=== PATIENT | female | born 2000 | race Caucasian/White ===

== ENCOUNTER 2023-10-22 00:09 | Emergency (ER) | payer SELFPAY ==
--- NOTE | ~2023-10-22 | XR_ITS ---
Portable chest x-ray Comparison: None Clinical History: Overdose Findings: Lungs are clear, without focal consolidation or pleural effusion. Cardiomediastinal silho uette is unremarkable. Bones and soft tissues are unremarkable. Impression: Normal chest. Reviewed, dictated and finalized at location M. Impression: Normal chest.
--- NOTE | ~2023-10-22 | CT_ITS ---
Non-contrast Head CT History: Seizure Technique: Axial non-contrast imaging of the brain was performed. Dose reduction technique was used on this scan by utilizing automated exposure control and iterative reconstruction technique. The dose -length product (DLP) was 605.33 mGy-cm. Findings: There is no evidence of intracranial hemorrhage, mass lesion, or acute infarct. Brain par enchyma appears normal. The ventricles and subarachnoid spaces are normal in size. The calvarium ap pears normal. The visualized paranasal sinuses and mastoid air cells are clear. Impression: No significant abnormality seen. Reviewed, dictated and finalized at location . Impression: No significant abnormality seen.
[2023-10-22 00:11] VITALS: BP 120/94; PULSE 98; RESP 18; TEMP 36.9; O2SAT 100
--- NOTE | 2023-10-22 00:21 | ECG_ITS ---
Test Date: 2023-10-22 00:46:05 Measurements Intervals Jeffrey Rate: 75 P: 53 [place]: 144 QRS: 67 QRSD: 92 T: 68 QT: 393 QTc: 442 Interpretive Statements SINUS RHYTHM INCOMPLETE RIGHT BUNDLE BRANCH BLOCK BORDERLINE ECG No previous ECG available for comparison Electronically Signed On 10-22-2023 06:10:15 CDT by Eugene Espinosa D.O.
[2023-10-22] MEDS: SODIUM CHLORIDE 0.9% IV 1,000 ML 999 ML IV CONT (00:27)
[2023-10-22 00:39] LABS: Acetaminophen < 10 ug/mL (10-30); Ethanol < 10 mg/dL (<10); Salicylate < 1.0 mg/dL (2-20)
[2023-10-22 00:42] LABS: INR 1.1; Partial Thromboplastin Time 22.2 Seconds (22.3-36.8)
[2023-10-22 00:44] LABS: Alanine Aminotransferase 15 U/L (6-35); Albumin Level 4.3 g/dL (3.5-5.1); Alkaline Phosphatase 52 U/L (38-126); Anion Gap 9 mmol/L (4-12); Aspartate Amino Transferase 22 U/L (14-36); Bilirubin,Total 0.6 mg/dL (0.2-1.3); Blood Urea Nitrogen 16 mg/dL (7-17); Calcium 9.1 mg/dL (8.4-10.2); Carbon Dioxide 26 mmol/L (22-30); Chloride 106 mmol/L (98-107); Estimated CRCL calculation 65 ml/min; Estimated Glomerular Filt Rate > 60; Glucose 81 mg/dL (65-110); Potassium 3.8 mmol/L (3.4-5.0); Sodium 141 mmol/L (137-145)
[2023-10-22 00:57] LABS: Basophils Percent Auto 0.6 % (0.2-1.2); Eosinophils Absolute Auto 0.2 K/mm3 (0-0.3); Eosinophils Percent Auto 2.2 % (0-4.4); Hematocrit 36.7 % (37.0-47.0); Hemoglobin 12.5 g/dL (12.0-15.0); Immature Granulocyte Absolute 0.01 K/mm3 (0.00-0.031); Immature Granulocyte Percent A 0.1 % (0-0.5); Lymphocytes Absolute Auto 4.77 K/mm3 (0.9-3.2); Lymphocytes Percent Auto 65.6 % (18.3-44.2); Mean Corpuscular HGB Conc 34.1 g/dl (32-36); Mean Corpuscular Hemoglobin 31.5 pg (26-34); Mean Corpuscular Volume 92.4 fl (80-100); Mean Platelet Volume 9.6 fl (7.4-10.4); Monocytes Absolute Auto 0.4 K/mm3 (0.1-0.6); Neutrophils Absolute Auto 1.9 K/mm3 (1.3-6.7); Neutrophils Percent Auto 26.5 % (45.5-73.1); Platelet Count Result 229 k/mm3 (150-375); Red Blood Count 3.97 M/mm3 (4.2-5.4); Red Cell Distribution Width 12.6 % (11.5-14.5); White Blood Count 7.3 K/mm3 (4.5-10.0)
[2023-10-22 01:30] LABS: Appearance Urine Cloudy (Clear); Bacteria Urine 4+ /hpf; Bilirubin Urine Negative (Negative); Blood Urine Negative (Negative); Color Urine Dark Yellow (Yellow); Glucose Urine UA Negative (Negative); Ketones Urine Trace mg/dL (Negative); Leukocyte Esterase Ur 1+ LEU/UL (Negative); Nitrate Urine Positive (Negative); Non Pathogenic Casts 0-2; Protein Urine 1+ mg/dL (Negative); Specific Grav Ur 1.035 (1.001-1.035); Squamous Epithelial Cell Urine Few /hpf (Few); WBC Urine 51-100 /hpf (0-3)
[2023-10-22 01:40] LABS: Add Urine Microscopic? YES; Barbiturate Screen Urine Negative (Negative); Benzodiazepines Screen Urine Negative (Negative)
[2023-10-22 01:44] LABS: Cannabinoid Screen Urine Positive (Negative); Cocaine Screen Urine Negative (Negative); Methadone Screen Urine Negative (Negative); Opiate Screen Urine Negative (Negative); Phencyclidine Screen Urine Negative (Negative)
--- NOTE | 2023-10-22 01:54 | ED.GENADULT ---
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 Patient denies drug ingestion specifically opiates. She reports history of seizure once in the past when overdosing on Seroquel. Denies any attempts to kill herself. She is currently traveling from [facility] to [place]. Patient did receive 12 mg of Narcan. Patient is not vomiting. She has had some yawning. Patient was originally orient x2 for EMS but is orient x4 here. Related Data Allergies Allergy/AdvReac Type Severity Reaction Status Date / Time No Known Allergies Allergy Verified 10/22/23 01:56 Review of Systems Review of Systems: All systems reviewed & are unremarkable except as noted in HPI and below Constitutional: Constitutional: Reports no additional constitutional complaints ENT: Reports system reviewed and no additional complaints, except as documented Cardiovascular: Cardiovascular: Reports no additional cardiovascular complaints Respiratory: Respiratory: Reports no additional respiratory complaints Gastrointestinal: Gastrointestinal: Reports no additional gastrointestinal complaints PMFSH Past Medical History Medical History (Updated 10/22/23 @ 06:37 by Kerwin Shannon MD) Depression Surgical History Surgical History (Updated 10/22/23 @ 06:30 by Kerwin Shannon MD) No pertinent past surgical history Social History Social History Substance use type: unknown Exam Narrative: GENERAL: Tearful-appearing, well-nourished, and in no acute distress. HEAD: Normocephalic, atraumatic. EYES: PERRL and EOMI. ENT: Mucous membranes moist. CHEST: Clear to auscultation. No respiratory distress. HEART: Regular rate and rhythm. Normal peripheral pulses. ABDOMEN: Soft, nontender, nondistended. EXTREMITIES: Normal range of motion. No edema. SKIN: Warm, dry, no rash. NEURO: Alert and oriented x3. PSYCH: Normal mood and affect. Course Course Emergency Course: Patient resting comfortably. Discussed lab results. Discussed with neurology and son felt patient needs to be on antiepileptics and this is likely provoked issue due to and vitamins. Patient educated she cannot drive a motor vehicle until 6 months seizure-free being cleared by her physician or neurologist. Will also treat her UTI at home. Vital Signs Vital signs: Vital Signs Temperature 98.5 F 10/22/23 00:11 Pulse Rate 98 07/11/24 00:11 Respiratory Rate 18 10/22/23 00:11 Blood Pressure 120/94 H 10/22/23 00:11 Pulse Oximetry 100 10/22/23 00:11 Oxygen Delivery Room Air 10/22/23 00:11 Temperature 98.5 F 10/22/23 00:11 Pulse Rate 94 10/22/23 04:40 Respiratory Rate 15 10/22/23 04:40 Blood Pressure 120/94 H 10/22/23 00:11 Pulse Oximetry 99 10/22/23 04:40 Oxygen Delivery Room Air 10/22/23 00:11 Medical Decision Making Vital Signs Vital Signs: Vital Signs Temperature 98.5 F 10/22/23 00:11 Pulse Rate 98 10/22/23 00:11 Respiratory Rate 18 10/22/23 00:11 Blood Pressure 120/94 H 10/22/23 00:11 Pulse Oximetry 100 10/22/23 00:11 Oxygen Delivery Room Air 10/22/23 00:11 Temperature 98.5 F 10/22/23 00:11 Pulse Rate 94 10/22/23 04:40 Respiratory Rate 15 10/22/23 04:40 Blood Pressure 120/94 H 10/22/23 00:11 Pulse Oximetry 99 10/22/23 04:40 Oxygen Delivery Room Air 10/22/23 00:11 Lab Data 10/22/23 00:24 10/22/23 00:24 Labs: Lab Results 10/22/23 10/22/23 Range/Units 00:24 01:06 WBC 7.3 (4.5-10.0) K/mm3 RBC 3.97 L (4.2-5.4) M/mm3 Hgb 12.5 (12.0-15.0) g/dL Hct 36.7 L (37.0-47.0) % MCV 92.4 (80-100) fl MCH 31.5 (26-34) pg MCHC 34.1 (32-36) g/dl RDW 12.6 (11.5-14.5) % Plt Count 229 (150-375) k/mm3 MPV 9.6 (
[2023-10-22 02:06] LABS: Amphetamine Screen Urine Positive (Negative)
[2023-10-22 04:40] VITALS: PULSE 94; RESP 15; O2SAT 99
[2023-10-22 06:47] VITALS: BP 114/66; PULSE 85; RESP 15; O2SAT 100
== END 2023-10-22 06:48 | disposition home or self-care (01) ==
PROVIDERS: Emergency Provider Emergency Medicine; PCP Family Medicine
DX: R56.9 Unspecified convulsions (principal); N39.0 Urinary tract infection, site not specified; I45.10 Unspecified right bundle-branch block
CPT/HCPCS: 36415; 70450; 71045; 80053; 80307; 81001; 85025; 85610; 85730; 87086; 87186; 93005; 96360; 99284; J7030